=== PATIENT | male | born 1960 | race Caucasian/White ===

== ENCOUNTER → 2017-08-22 | Outpatient (REF) | payer MEDICARE ==
[2017-08-22 13:40] LABS: RHEUMATOID FACTOR QUANT < 10.0 IU/ML (<15.0)
[2017-08-27 00:10] LABS: ANTINUCLEAR ANTIBODIES DIRECT Negative (Negative); Lyme Disease IgG/IgM Antibodie <0.91 ISR (0.00-0.90); Lyme Disease IgM Ab Quantitati <0.80 index (0.00-0.79)
[2017-08-27 00:10] LABS: CYCLIC CITRULLINATED PEPTIDE 6 units (0-19)
== END ==
LOC: M LAB REF 12:43
DX: Z01.89 Encounter for other specified special examinations (principal); G89.29 Other chronic pain; M54.16 Radiculopathy, lumbar region; M25.50 Pain in unspecified joint
CPT/HCPCS: 86803

== ENCOUNTER 2018-10-22 08:23 | Day surgery (SDC) | payer MEDICARE ==
[~2018-10-22] VITALS: Ht 172.7 cm; Wt 79.8 kg
[~2018-10-22 08:23] MED LIST: ASPI81TA85 PO; ATEN25TA PO; DULO30CA9 PO; GABA-845 PO; HYDR25TAB PO; LIDOCAINE 2% INJ 100 MG/5 ML SDV (FOR ANES.) As Ordered ONE; NORV5TAB PO; NS 1,000 ML IV ONE; PRAM1TAB7 PO; PROPOFOL 200 MG/20 ML VIAL As Ordered ONE; SILD100T7 PO
--- NOTE | 2018-10-22 10:20 | ROOR ---
Patient Name: Víctor Hansen Procedure Date: 10/22/2018 10:07 AM Date of : 1960 Age: 58 Room: [facility] Gender: Male Note Status: Finalized Procedure: Colonoscopy Indications: Screening for colorectal malignant neoplasm Providers: John Lerner DO Referring MD: Ida Holley DO Requesting Provider: Medicines: Propofol per Anesthesia Complications: No immediate complications. Procedure: Pre-Anesthesia Assessment: - Prior to the procedure, a History and Physical was performed, and patient medications and allergies were reviewed. The patient is competent. The risks and benefits of the procedure and the sedation options and risks were discussed with the patient. All questions were answered and informed consent was obtained. Patient identification and proposed procedure were verified by the physician, the nurse, the anesthesiologist and the qc lab technician in the endoscopy suite. Mental Status Examination: alert and oriented. Airway Examination: normal oropharyngeal airway and neck mobility. Respiratory Examination: clear to auscultation. CV Examination: normal. Prophylactic Antibiotics: The patient does not require prophylactic antibiotics. Prior Anticoagulants: The patient has taken no previous anticoagulant or antiplatelet agents. ASA Grade Assessment: II - A patient with mild systemic disease. After reviewing the risks and benefits, the patient was deemed in satisfactory condition to undergo the procedure. The anesthesia plan was to use monitored anesthesia care (MAC). Immediately prior to administration of medications, the patient was re-assessed for adequacy to receive sedatives. The heart rate, respiratory rate, oxygen saturations, blood pressure, adequacy of pulmonary ventilation, and response to care were monitored throughout the procedure. The physical status of the patient was re-assessed after the procedure. The Colonoscope was introduced through the anus with the intention of advancing to the cecum. The scope was advanced to the rectum before the procedure was aborted. Medications were not given. The colonoscopy was technically difficult and complex due to unsatisfactory bowel prep. The patient tolerated the procedure well. Findings: Copious quantities of stool was found in the rectum, precluding visualization. Impression: - Stool in the rectum. - No specimens collected. Recommendation: - Patient has a contact number available for emergencies. The signs and symptoms of potential delayed complications were discussed with the patient. Return to normal activities tomorrow. Written discharge instructions were provided to the patient. - Repeat colonoscopy at the next available appointment because the bowel preparation was suboptimal. - Return to my office as previously scheduled. John Lerner DO 10/22/2018 10:20:29 AM Electronically signed by John Lerner DO Number of Addenda: 0 Note Initiated On: 10/22/2018 10:07 AM Estimated Blood Loss: Estimated blood loss: none.
[2018-10-22 10:50] VITALS: BP 119/74
== END 2018-10-22 10:51 | disposition home or self-care (01) ==
LOC: M OPP 08:23
PROVIDERS: ATTEND Surgery
DX: Z12.11 Encounter for screening for malignant neoplasm of colon (principal); Z86.010 Personal history of colon polyps; F17.200 Nicotine dependence, unspecified, uncomplicated; I10 Essential (primary) hypertension; I73.9 Peripheral vascular disease, unspecified; K57.32 Diverticulitis of large intestine without perforation or abscess without bleeding; M19.90 Unspecified osteoarthritis, unspecified site; Z87.19 Personal history of other diseases of the digestive system; Z88.5 Allergy status to narcotic agent; Z79.82 Long term (current) use of aspirin; Z79.899 Other long term (current) drug therapy

== ENCOUNTER 2018-11-19 07:25 | Day surgery (SDC) | payer MEDICARE ==
[~2018-11-19] VITALS: Ht 172.7 cm; Wt 79.4 kg
[~2018-11-19 07:25] MED LIST changes: -LIDOCAINE 2% INJ 100 MG/5 ML SDV (FOR ANES.) As Ordered ONE; -PROPOFOL 200 MG/20 ML VIAL As Ordered ONE
[2018-11-19] MEDS ORDERED: LIDOCAINE 2% INJ 100 MG/5 ML SDV (FOR ANES.) As Ordered ONE (08:12)
[2018-11-19] MEDS ORDERED: PROPOFOL 200 MG/20 ML VIAL As Ordered ONE (08:12)
--- NOTE | 2018-11-19 08:36 | ROOR ---
Patient Name: Víctor Hansen Procedure Date: 11/19/2018 8:05 AM Date of : 1960 Age: 58 Room: [facility] Gender: Male Note Status: Finalized Procedure: Colonoscopy Indications: High risk colon cancer surveillance: Personal history of colonic polyps Providers: John Lerner DO Referring MD: Ida Holley DO Requesting Provider: Medicines: Propofol per Anesthesia Complications: No immediate complications. Procedure: Pre-Anesthesia Assessment: - Prior to the procedure, a History and Physical was performed, and patient medications and allergies were reviewed. The patient is competent. The risks and benefits of the procedure and the sedation options and risks were discussed with the patient. All questions were answered and informed consent was obtained. Patient identification and proposed procedure were verified by the physician, the nurse, the anesthesiologist and the clinical office technician in the endoscopy suite. Mental Status Examination: alert and oriented. Airway Examination: normal oropharyngeal airway and neck mobility. Respiratory Examination: clear to auscultation. CV Examination: normal. Prophylactic Antibiotics: The patient does not require prophylactic antibiotics. Prior Anticoagulants: The patient has taken no previous anticoagulant or antiplatelet agents. ASA Grade Assessment: II - A patient with mild systemic disease. After reviewing the risks and benefits, the patient was deemed in satisfactory condition to undergo the procedure. The anesthesia plan was to use monitored anesthesia care (MAC). Immediately prior to administration of medications, the patient was re-assessed for adequacy to receive sedatives. The heart rate, respiratory rate, oxygen saturations, blood pressure, adequacy of pulmonary ventilation, and response to care were monitored throughout the procedure. The physical status of the patient was re-assessed after the procedure. The Colonoscope was introduced through the anus and advanced to the cecum, identified by appendiceal orifice and ileocecal valve. The colonoscopy was performed without difficulty. The patient tolerated the procedure well. Findings: Multiple small and large-mouthed diverticula were found in the sigmoid colon, descending colon and transverse colon. A less than 5 mm polyp was found in the cecum. The polyp was hyperplastic. The polyp was removed with a jumbo cold forceps. Resection and retrieval were complete. Estimated blood loss was minimal. Internal hemorrhoids were found during retroflexion. The hemorrhoids were small and Grade I (internal hemorrhoids that do not prolapse). The exam was otherwise without abnormality on direct and retroflexion views. Impression: - Diverticulosis in the sigmoid colon, in the descending colon and in the transverse colon. - One less than 5 mm polyp in the cecum, removed with a jumbo cold forceps. Resected and retrieved. - Internal hemorrhoids. - The examination was otherwise normal on direct and retroflexion views. Recommendation: - Patient has a contact number available for emergencies. The signs and symptoms of potential delayed complications were discussed with the patient. Return to normal activities tomorrow. Written discharge instructions were provided to the patient. - Repeat colonoscopy in 5-10 years for surveillance based on pathology results. - Return to my office as previously scheduled. Jhon Lerner DO 11/19/2018 8:36:03 AM Electronically signed by John Lerner DO Number of Addenda: 0 Note Initiated On: 11/19/2018 8:05 AM Estimated Blood Loss: Estimated blood loss was minimal.
[2018-11-19 08:50] VITALS: BP 133/86
== END 2018-11-19 09:00 | disposition home or self-care (01) ==
LOC: M OPP 07:25
PROVIDERS: ATTEND Surgery
DX: Z12.11 Encounter for screening for malignant neoplasm of colon (principal); Z86.010 Personal history of colon polyps; K64.0 First degree hemorrhoids; D12.0 Benign neoplasm of cecum; K57.30 Diverticulosis of large intestine without perforation or abscess without bleeding; Z79.82 Long term (current) use of aspirin; Z79.899 Other long term (current) drug therapy; Z88.5 Allergy status to narcotic agent; Z88.8 Allergy status to other drugs, medicaments and biological substances; F17.210 Nicotine dependence, cigarettes, uncomplicated

== ENCOUNTER → 2020-06-27 | Outpatient (REF) | payer MEDICARE, MEDICAID ==
[~2020-06-27] MED LIST changes: -ASPI81TA85 PO; +ASPI81TA86 PO; +HYDR-3490 PO; -HYDR25TAB PO; -NS 1,000 ML IV ONE
[2020-06-27 12:39] LABS: APPEARANCE, URINE CLEAR (CLEAR); BACTERIA, URINE AUTO NEGATIVE (NEGATIVE); BILIRUBIN, URINE AUTO NEGATIVE (NEGATIVE); BLOOD, URINE BLOOD NEGATIVE (NEGATIVE); COLOR, URINE YELLOW (YELLOW); GLUCOSE, URINE (UA) AUTO NEGATIVE (NEGATIVE); KETONE, URINE AUTO NEGATIVE (NEGATIVE); LEUKOCYTE ESTERASE, URINE AUTO NEGATIVE (NEGATIVE); NITRITE, URINE AUTO NEGATIVE (NEGATIVE); PROTEIN, URINE AUTO NEGATIVE (NEGATIVE); RBC, URINE AUTO 1 /HPF (0-3); SQUAMOUS EPITHELIAL CELL UR AU 0 /HPF (0-6); UROBILINOGEN, URINE AUTO 0.2 mg/dL (0.0-2.0); WBC, URINE AUTO 1 /HPF (0-3)
[2020-06-27 12:57] LABS: INR 0.95; PROTHROMBIN TIME 12.9 SECONDS (12.5-14.3)
[2020-06-27 12:58] LABS: PARTIAL THROMBOPLASTIN TIME 32.3 SECONDS (24.2-38.5)
== END ==
LOC: M LAB REF 12:18
PROVIDERS: ATTEND Internal Medicine
DX: Z01.818 Encounter for other preprocedural examination (principal); M48.062 Spinal stenosis, lumbar region with neurogenic claudication; Z79.82 Long term (current) use of aspirin; Z79.899 Other long term (current) drug therapy

== ENCOUNTER → 2020-07-16 | Outpatient (CLI) | payer MEDICARE | LOC: M LABSMTC 10:59 | DX: Z01.812 Encounter for preprocedural laboratory examination (principal); Z20.822 Contact with and (suspected) exposure to COVID-19 ==

== ENCOUNTER → 2020-08-18 | Outpatient (CLI) | payer MEDICARE ==
[~2020-08-18] MED LIST changes: +GABA-283 PO; -GABA-845 PO
--- NOTE | 2020-08-18 11:58 | REP ---
INDICATION: LUNG SCREENING. COMPARISON: 12/05/2014 a standard contrast-enhanced CT examination of the chest TECHNIQUE: Axial noncontrast images from the thoracic inlet to the upper abdomen using low-dose lung screening technique (LDCT). As per the protocol only lung window images were sent to the read station for interpretation. FINDINGS: There is a tiny predominantly linear density seen in the right middle lobe which is unchanged. There are no new abnormal nodules, masses, or opacities. Grossly, the mediastinum and pulmonary tiffany are unchanged. Grossly, the imaged upper abdomen and imaged osseous structures are unchanged. IMPRESSION: Lung rads category [address] examination of the lungs. As per the revised Fleischner society criteria and the patient's history yearly screening may be appropriate. <Electronically signed by Yuniel Ford > 08/18/20 1308
== END ==
LOC: M RAD 11:01
PROVIDERS: ATTEND Internal Medicine
DX: Z12.2 Encounter for screening for malignant neoplasm of respiratory organs (principal); F17.210 Nicotine dependence, cigarettes, uncomplicated; R91.8 Other nonspecific abnormal finding of lung field